=== PATIENT | female | born 1995 | race Caucasian/White ===

== ENCOUNTER 2024-01-18 17:41 | Emergency (ER) | payer MEDICAID ==
[~2024-01-18] VITALS: Ht 180.3 cm; Wt 129.6 kg
[2024-01-18 17:51] VITALS: BP 118/74; PULSE 81; RESP 18; TEMP 97.6
== END 2024-01-18 18:49 | disposition left against medical advice (07) ==
LOC: EMS 17:41
DX: M79.675 Pain in left toe(s) (principal); Z53.21 Procedure and treatment not carried out due to patient leaving prior to being seen by health care provider